=== PATIENT | female | born 1945 | race Caucasian/White ===

== ENCOUNTER 2016-08-22 09:26 | Outpatient (CLI) ==
--- NOTE | 2016-08-22 09:50 | DI ---
Examination: Two radiographic images of the chest. Comparison: 01/23/2009. Reason for study: Chest pain. FINDINGS: No pneumothorax, pleural effusion, or focal consolidation. Degenerative changes are seen in the thoracic spine. The cardiac silhouette is not enlarged. Cholecystectomy clips are seen in the right upper quadrant. Impression: No acute cardiopulmonary process.
--- NOTE | 2016-08-22 09:51 | DI ---
EXAM: Three views of the thoracic spine. History: Back pain. Findings: No acute fracture or subluxation of the thoracic spine. Cholecystectomy clips. Mild mul tilevel degenerative disc space narrowing within the thoracic spine with a few small anterior osteop hytes. Degenerative disc disease is seen within the partially visualized lumbar spine and is more s ignificant than in the thoracic spine. Degenerative changes is also seen within the visualized cerv ical spine and is also more significant than within the thoracic spine with prominent anterior osteo phytes at C5-6 and C6-7. Impression: No acute osseous abnormality. 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 There is also degenerative disc disease within the cervical spine and lumbar spine that is more s ignificant than in the thoracic spine.
== END 2016-08-22 09:27 | disposition home or self-care (01) ==
LOC: RAD 09:26
PROVIDERS: ATTEND Family Medicine
DX: R07.9 Chest pain, unspecified (principal); M54.9 Dorsalgia, unspecified